=== PATIENT | female | born 1955 | race African-American/Black ===

== ENCOUNTER 2017-11-30 10:19 | Emergency (ER) | payer MEDICAID ==
[~2017-11-30] VITALS: Ht 170.2 cm; Wt 73.0 kg
[~2017-11-30 10:19] MED LIST: SOFO400T; [UNRECOGNIZED DRUG - CODE]
[2017-11-30 10:39] VITALS: BP 150/69
== END 2017-11-30 12:42 | disposition home or self-care (01) ==
LOC: ER 10:27
DX: S80.862A Insect bite (nonvenomous), left lower leg, initial encounter (principal); S80.861A Insect bite (nonvenomous), right lower leg, initial encounter; E78.00 Pure hypercholesterolemia, unspecified; I10 Essential (primary) hypertension; Z87.891 Personal history of nicotine dependence; W57.XXXA Bitten or stung by nonvenomous insect and other nonvenomous arthropods, initial encounter; Y93.89 Activity, other specified; Y92.89 Other specified places as the place of occurrence of the external cause; Y99.8 Other external cause status
CPT/HCPCS: 99282

== ENCOUNTER 2018-02-26 15:15 | Emergency (ER) | payer MEDICAID ==
[~2018-02-26] VITALS: Ht 172.7 cm; Wt 76.0 kg
[2018-02-26] MEDS ORDERED: METHYLPREDNISOLONE SOD SUCC 125 MG/2 ML VIAL IV ONE (17:00)
[2018-02-26] MEDS ORDERED: DIPHENHYDRAMINE 50MG/ML VIAL IV ONE (17:00)
[2018-02-26] MEDS ORDERED: FAMOTIDINE 20MG/2ML VIAL IV ONE (17:00)
[2018-02-26 20:25] VITALS: BP 120/76
== END 2018-02-26 20:27 | disposition home or self-care (01) ==
LOC: ER 15:43
DX: L50.9 Urticaria, unspecified (principal); E78.00 Pure hypercholesterolemia, unspecified; I10 Essential (primary) hypertension
CPT/HCPCS: 96374; 96375; 99284; J1200; J2930; J3490; Z7610